=== PATIENT | female | born 1945 | race African-American/Black ===

== ENCOUNTER 2018-11-21 11:36 | Emergency (ER) | payer OTHER ==
--- NOTE | 2018-11-21 12:25 | ER Document Report ---
ED Medical Screen (RME) - General Chief Complaint: Chest Pain Stated Complaint: BACK PAIN Time Seen by Provider: 11/21/18 12:21 Notes: Patient says that she has been experiencing pains in the lower thoracic back area bilaterally for about 3 weeks. Over the past week it seems to have moved around to the front on both sides. She says it severely painful for her to take a deep breath or for her to move. It is constantly there, but worsened by movement and breathing. She has had a cough since yesterday, not producing any sputum. Has not had any fevers. Patient has a history of hypertension, but not on any current medications. Hypothyroid. Smoker. TRAVEL OUTSIDE OF THE [place] IN LAST 30 DAYS: No - Related Data Allergies/Adverse Reactions: No Known Allergies Allergy (Unverified 11/21/18 11:37) Past Medical History Renal/ Medical History: Denies: Hx Peritoneal Dialysis Physical Exam - Vital signs Vitals: Temp Pulse Resp BP Pulse Ox 97.5 F 58 L 16 144/71 H 99 11/21/18 12:11/21/18 12:11/21/18 12:11/21/18 12:11/21/18 12:01 Course - Vital Signs Vital signs: Temp Pulse Resp BP Pulse Ox 97.5 F 58 L 16 144/71 H 99 11/21/18 12:11/21/18 12:11/21/18 12:11/21/18 12:11/21/18 12:01
[2018-11-21 13:56] LABS: APPEARANCE,URINE CLEAR; BILIRUBIN,URINE NEGATIVE (NEGATIVE); COLOR,URINE YELLOW; GLUCOSE, URINE NEGATIVE (NEGATIVE); KETONES,URINE NEGATIVE (NEGATIVE); LEUKOCYTE ESTERASE,URINE MODERATE (NEGATIVE); NITRITE,URINE NEGATIVE (NEGATIVE); PROTEIN,URINE NEGATIVE (NEGATIVE); URINE SPECIFIC GRAVITY 1.018; UROBILINOGEN,URINE NEGATIVE mg/dL (<2.0)
[2018-11-21 14:10] LABS: ABSOLUTE BASOPHILS # (AUTO) 0.1 10^3/uL (0.0-0.2); ABSOLUTE EOSINOPHILS # (AUTO) 0.1 10^3/uL (0.0-0.6); ABSOLUTE MONOCYTES (AUTO) 0.5 10^3/uL (0.1-1.4); ABSOLUTE NEUT (AUTO) 3.3 10^3/uL (1.7-8.2); BASOPHILS % (AUTO) 1.1 % (0-2); EOSINOPHILS % (AUTO) 1.7 % (0-6); HEMATOCRIT 42.5 % (36.0-47.0); HEMOGLOBIN 14.3 g/dL (12.0-15.5); LYMPHOCYTES % (AUTO) 42.9 % (13-45); MEAN CORPUSCULAR HGB CONC 33.6 g/dL (32.0-36.0); MEAN CORPUSCULAR VOLUME 95 fl (80-97); MONOCYTES % (AUTO) 6.7 % (3-13); PLATELET COUNT 193 10^3/uL (150-450); RED BLOOD COUNT 4.46 10^6/uL (3.72-5.28); RED CELL DISTRIBUTION WIDTH 13.2 % (11.5-14.0); SEGMENTED NEUTROPHILS % (AUTO) 47.6 % (42-78); TOTAL CELLS COUNTED % (AUTO) 100 %; WHITE BLOOD COUNT 6.9 10^3/uL (4.0-10.5)
[2018-11-21 14:15] LABS: ALANINE AMINOTRANSFERASE 19 U/L (9-52); ALBUMIN 4.8 g/dL (3.5-5.0); ALKALINE PHOSPHATASE 79 U/L (38-126); ANION GAP 7 (5-19); ASPARTATE AMINO TRANSFERASE 25 U/L (14-36); BILIRUBIN,DIRECT 0.2 mg/dL (0.0-0.4); BILIRUBIN,TOTAL 0.5 mg/dL (0.2-1.3); BLOOD UREA NITROGEN 13 mg/dL (7-20); CARBON DIOXIDE 29 mmol/L (22-30); CHLORIDE 108 mmol/L (98-107); CREATINE KINASE 62 U/L (30-135); GLUCOSE 87 mg/dL (75-110); LIPASE 106.2 U/L (23-300); POTASSIUM 4.4 mmol/L (3.6-5.0); SODIUM 144.3 mmol/L (137-145); TOTAL PROTEIN 7.6 g/dL (6.3-8.2)
[2018-11-21 14:40] LABS: CREATINE KINASE MB 0.95 ng/mL (<4.55)
[2018-11-21 14:44] LABS: TROPONIN I < 0.012 ng/mL
--- NOTE | 2018-11-21 15:05 | RADIOLOGY REPORT (SQ) ---
EXAM DESCRIPTION: CHEST 2 VIEWS COMPLETED DATE/TIME: 11/21/2018 2:52 pm REASON FOR STUDY: Lower thoracic back and anterior chest pain bilate COMPARISON: None. EXAM PARAMETERS: NUMBER OF VIEWS: two views TECHNIQUE: Digital Frontal and Lateral radiographic views of the chest acquired. RADIATION DOSE: NA LIMITATIONS: none FINDINGS: LUNGS AND PLEURA: No opacities, masses or pneumothorax. No pleural effusion. MEDIASTINUM AND HILAR STRUCTURES: No masses or contour abnormalities. HEART AND VASCULAR STRUCTURES: Heart normal size. No evidence for failure. BONES: No acute findings. HARDWARE: None in the chest. OTHER: No other significant finding. IMPRESSION: NO ACUTE RADIOGRAPHIC FINDING IN THE CHEST. TECHNICAL DOCUMENTATION: JOB ID: [id number] [employer]- All Rights Reserved Reading location - IP/workstation name: [email or web address]
--- NOTE | 2018-11-21 19:41 | ER Document Report ---
ED General - General Chief Complaint: Chest Pain Stated Complaint: BACK PAIN Time Seen by Provider: 11/21/18 12:21 [facility] - Follow up as needed Notes: Patient is a 73-year-old female with a past medical history of hypertension, chronic smoker, presents after being referred by the [place] due to several weeks of upper back pain wrapping around to her chest. She was referred for a chest x- ray. The patient describes the pain as being a throbbing, aching pain worsened by breathing sometimes worsened by movement. She notes that she is developed a cough within the past several days but also dramatically worsens the pain in the chest. Denies a history of similar symptoms in the past. Has not had fever or constitutional symptoms. No history of DVT or pulmonary embolus. Does not take any form of supplemental estrogen. Symptoms unchanged today, came to the emerge ncy department at the behest [facility]. TRAVEL OUTSIDE OF THE [place] IN LAST 30 DAYS: No - Related Data Allergies/Adverse Reactions: No Known Allergies Allergy (Unverified 11/21/18 11:37) Past Medical History - General Information source: Patient - Social History Smoking Status: Current Every Day Smoker Cigarette use (# per day): Yes - 1/2 pack/day Smoking Education Provided: Yes - Smoking cessation counseling was provided for 4 minutes at the bedside Frequency of alcohol use: None Drug Abuse: None Lives with: Family Family History: Reviewed & Not Pertinent Patient has suicidal ideation: No Patient has homicidal ideation: No Renal/ Medical History: Denies: Hx Peritoneal Dialysis Review of Systems - Review of Systems Notes: Constitutional: Negative for fever. HENT: Negative for sore throat. Eyes: Negative for visual changes. Cardiovascular: Positive for chest discomfort Respiratory: Negative for shortness of breath. Gastrointestinal: Negative for abdominal pain, vomiting or diarrhea. Genitourinary: Negative for dysuria. Musculoskeletal: Positive for mid to upper back pain Skin: Negative for rash. Neurological: Negative for headaches, weakness or numbness. 10 point ROS negative except as marked above and in HPI. Physical Exam - Vital signs Vitals: Temp Pulse Resp BP Pulse Ox 97.5 F 58 L 16 144/71 H 99 11/21/18 12:01 11/21/18 12:11/21/18 12:11/21/18 12:11/21/18 12:01 Interpretation: Bradycardic Notes: PHYSICAL EXAMINATION: GENERAL: Well-appearing, well-nourished and in no acute distress. HEAD: Atraumatic, normocephalic. EYES: Pupils equal round and reactive to light, extraocular movements intact, sclera anicteric, conjunctiva are normal. ENT: nares patent, oropharynx clear without exudates. Moist mucous membranes. NECK: Normal range of motion, supple without lymphadenopathy LUNGS: Breath sounds clear to auscultation bilaterally and equal. No wheezes rales or rhonchi. HEART: Regular rate and rhythm without murmurs ABDOMEN: Soft, nontender, normoactive bowel sounds. No guarding, no rebound. No masses appreciated. EXTREMITIES: Normal range of motion, no pitting or edema. No cyanosis. Back: No midline spinal tenderness, step-offs or deformities NEUROLOGICAL: No focal neurological deficits. Moves all extremities sponta neously and on command. PSYCH: Normal mood, normal affect. SKIN: Warm, Dry, normal turgor, no rashes or lesions noted. Course - Re-evaluation Re-evalutation: 11/21/18 19:40 Patient presents with low thoracic, lower rib and diffuse chest wall discomfort with breathing. Patient is a smoker, although has no prior history of DVT or pulmonary metastases. No tachycardia, hypoxemia or tachypnea. However the patient's characterization of her pain is extort nearly worrisome for an acute pulmonary embolus particular given her advanced age and smoking status. Moreover I do not have an alternative vaccination for why she is describing her pain in such a manner as she has not been coughing or doing anything that would have resulted in diffuse muscular skeletal pain which although is the more probable diagnosis would be a diagnosis of exclusion. Her chest x-ray, labs, troponin all unremarkable. I do not believe troponins need to be recycled as patient has been having these pains for 3 weeks or greater. Proceed with CTA of the chest if this is normal plan for discharge home. 11/21/18 21:21 CT of the chest without any evidence of an acute pulmonary embolus. An incidental left adrenal mass is noted. I have gone to the bedside and discussed this finding with the patient and provided her a copy of her CT report. I have explicitly told her she needs to follow-up regarding this issue for possible repeat imaging, may result in serial monitoring as an outpatient versus biopsy. Patient's symptoms overall improved. Vitals remain within normal limits. At this time will discharge with return precautions and follow-up recommendations. Verbal discharge instructions given a the bedside and opportunity for questions given. Medication warnings reviewed. Patient is in agreement with this plan and has verbalized understanding of return precautions and the need for primary care follow-up in the next 24-72 hours. - Vital Signs Vital signs: Temp Pulse Resp BP Pulse Ox 98.1 F 58 L 18 137/69 H 98 11/21/18 21:58 11/21/18 12:01 11/21/18 21:58 11/21/18 21:58 11/21/18 21:18 - Laboratory Result Diagrams: 11/21/18 13:38 11/21/18 13:38 Laboratory results interpreted by me: 11/21/18 11/21/18 13:38 13:38 Chloride 108 H Ur Leukocyte Esterase MODERATE H - Diagnostic Test Radiology reviewed: Image reviewed, Reports reviewed Radiology results interpreted by me: 11/21/18 21:22 Chest x-ray: No acute infiltrate pneumothorax - EKG Interpretation by Me Additional EKG results interpreted by me: 11/22/18 02:31 Sinus bradycardia, rate 54. No ST elevations or depressions. QTC is 406. Discharge - Discharge Clinical Impression: Pleuritic pain, Upper back pain, Left adrenal mass, Chest wall pain Condition: Good Disposition: HOME, SELF-CARE Additional Instructions: You were seen today for chest pain. The exact cause of your pain is unclear. However, based on your cardiac enzyme testing, chest x-ray, CTA of your chest, and EKG it does not appear that it is from an immediately life-threatening cause at this time. Although your testing here is normal is critical that you follow- up with your primary care physician for continued evaluation of this chest pain. As we discussed the CT scan of your chest also incidentally found a mass in your left adrenal gland. You need to follow-up with your primary care doctor fo r repeat assessment of this including possible additional imaging and/or biopsy. Please return to emergency department immediately if you have worsening of your chest pain, shortness of breath, vomiting, become unable to exert yourself due to pain or difficulty breathing, you pass out, or have any pain that radiates into your arms, jaw, or back. Please also return if you have any additional symptoms that are concerning to you. [facility]errals: [facility] [[facility]] - Follow up as needed
--- NOTE | 2018-11-21 20:51 | RADIOLOGY REPORT (SQ) ---
CT CHEST ANGIOGRAPHY WITHOUT THEN WITH IV CONTRAST HISTORY: Shortness of breath. COMPARISON: None. TECHNIQUE: CT angiogram of the chest with IV contrast. 3-D MIP images were obtained in coronal and sagittal reconstructions. This exam was performed according to our departmental dose-optimization program, which includes automated exposure control, adjustment of the mA and/or kV according to patient size and/or use of iterative reconstruction technique. FINDINGS: No filling defects are identified in the pulmonary trunk, main left and right pulmonary arteries, or the segmental branches. No aortic aneurysm or dissection is seen. The thyroid gland is normal. No mediastinal or hilar adenopathy. The heart size is normal without pericardial effusion. No consolidation, pleural effusion, or pneumothorax is identified. There are mild degenerative changes of the spine. There is a 5.0 x 5.8 cm mass in the left adrenal gland containing calcification. IMPRESSION: 1. No acute pulmonary embolism. 2. Clear lungs. 3. Partially visualized 6 cm left adrenal gland mass. Consider dedicated abdomen CT scan for complete evaluation.
--- NOTE | 2018-11-21 21:57 | EKG REPORT ---
SEVERITY:- NORMAL ECG - SINUS RHYTHM : Confirmed by: Aditya Cody 21-Nov-2018 21:56:30
[2018-11-21 22:06] VITALS: BP 137/69
== END 2018-11-21 22:06 | disposition home or self-care (01) ==
LOC: ER 11:36
DX: D44.12 Neoplasm of uncertain behavior of left adrenal gland (principal); R07.81 Pleurodynia; M54.6 Pain in thoracic spine; R05 Cough; M54.9 Dorsalgia, unspecified; I10 Essential (primary) hypertension; F17.210 Nicotine dependence, cigarettes, uncomplicated
CPT/HCPCS: 36415; 71046; 71275; 80053; 81001; 82550; 82553; 83690; 84484; 85025; 93005; 93010; 99284

== ENCOUNTER 2019-03-20 07:49 | Inpatient (IN) | payer OTHER, MEDICARE ==
--- NOTE | 2019-03-13 10:29 | RADIOLOGY REPORT (SQ) ---
EXAM DESCRIPTION: CHEST PA/LATERAL COMPLETED DATE/TIME: 03/13/2019 10:20 am REASON FOR STUDY: PRE OP COMPARISON: 11/21/2018 EXAM PARAMETERS: NUMBER OF VIEWS: two views TECHNIQUE: Digital Frontal and Lateral radiographic views of the chest acquired. RADIATION DOSE: NA LIMITATIONS: none FINDINGS: LUNGS AND PLEURA: No opacities, masses or pneumothorax. No pleural effusion. MEDIASTINUM AND HILAR STRUCTURES: No masses or contour abnormalities. HEART AND VASCULAR STRUCTURES: Heart normal size. No evidence for failure. BONES: No acute findings. HARDWARE: None in the chest. OTHER: No other significant finding. IMPRESSION: NO SIGNIFICANT RADIOGRAPHIC FINDING IN THE CHEST. TECHNICAL DOCUMENTATION: JOB ID: [id number] [employer]- All Rights Reserved Reading location - IP/workstation name: [email or web address]
[2019-03-13 10:45] LABS: HEMATOCRIT 40.6 % (36.0-47.0); HEMOGLOBIN 13.4 g/dL (12.0-15.5); MEAN CORPUSCULAR HEMOGLOBIN 31.1 pg (27.0-33.4); MEAN CORPUSCULAR HGB CONC 32.9 g/dL (32.0-36.0); MEAN CORPUSCULAR VOLUME 95 fl (80-97); PLATELET COUNT 221 10^3/uL (150-450); WHITE BLOOD COUNT 5.8 10^3/uL (4.0-10.5)
[2019-03-13 11:12] LABS: ANION GAP 7 (5-19); BLOOD UREA NITROGEN 13 mg/dL (7-20); CALCIUM 10.4 mg/dL (8.4-10.2); CARBON DIOXIDE 26 mmol/L (22-30); CHLORIDE 109 mmol/L (98-107); GLUCOSE 86 mg/dL (75-110); POTASSIUM 5.5 mmol/L (3.6-5.0)
--- NOTE | 2019-03-13 19:15 | EKG REPORT ---
SEVERITY:- OTHERWISE NORMAL ECG - SINUS RHYTHM ATRIAL PREMATURE COMPLEX : Confirmed by: Rimma Wooten MD 13-Mar-2019 19:15:15
[~2019-03-20 07:49] MED LIST: ACETAMINOPHEN 325 MG TABLET ONE; ACETAMINOPHEN 325 MG TABLET PO PRN; CEFAZOLIN 2 GM/D5W RTU 2 GM/50 ML RTUPB IV ONE; DEXAMETHASONE SOD PHOSPHATE INJ 4 MG/1 ML VIAL ONE; FENTANYL CITRATE INJ/PF 100 MCG/2 ML AMPUL ONE; FENTANYL CITRATE INJ/PF 250 MCG/5 ML AMPULE ONE; HYDROCORTISONE SOD SUCCINATE INJ/PF 100 MG/2 ML SDV ONE; IBUPROFEN 800 MG in NORMAL SALINE 250 ML IV PRN; LACTATED RINGERS 1000 ML IV PRN; LIDOCAINE 0.5% INJ-PF (5 MG/ML) 50 ML SDV SUBCUT PRN; MIDAZOLAM 2 MG/2 ML INJ ONE; ONDANSETRON HCL INJ/PF 4 MG/2 ML SDV ONE; PREGABALIN 50 MG CAPSULE ONE; PREGABALIN 50 MG CAPSULE PO PRN; PROPOFOL INJ 200 MG/20 ML VIAL IV ONE; RINGERS SOLUTION,LACTATED 1,000 ML IV PRN; SUGAMMADEX SODIUM 200 MG/2 ML SDV IV ONE
[2019-03-20] MEDS ORDERED: ALBUTEROL SULFATE 0.083% NEB 2.5 MG/3 ML AMPUL NEB ONE (08:47)
[2019-03-20] MEDS ORDERED: MIDAZOLAM 2 MG/2 ML INJ ONE (08:48)
[2019-03-20] MEDS ORDERED: BUPIVACAINE HCL 0.25 % INJ/PF (2.5 MG/1 ML) 30 ML VIAL ONE (09:37)
[2019-03-20] MEDS ORDERED: ONDANSETRON HCL INJ/PF 4 MG/2 ML SDV IV PRN ×2 (12:28→13:07)
[2019-03-20] MEDS ORDERED: DOCUSATE SODIUM 100 MG CAPSULE PO PRN (12:36)
[2019-03-20] MEDS ORDERED: HYDRALAZINE HCL INJ/PF 20 MG/1 ML SDV IV PRN (12:37)
[2019-03-20] MEDS ORDERED: MEPERIDINE HCL/PF INJ 25 MG/1 ML DISP.SYRIN IV PRN (13:07)
[2019-03-20] MEDS ORDERED: MORPHINE SULFATE 10 MG/ML INJ IV PRN (13:07)
[2019-03-20] MEDS ORDERED: FENTANYL CITRATE INJ/PF 100 MCG/2 ML AMPUL IV PRN ×3 (13:07)
[2019-03-20] MEDS ORDERED: DIPHENHYDRAMINE HCL 50 MG/ML VIAL IV PRN (13:07)
[2019-03-20] MEDS ORDERED: PROMETHAZINE HCL INJ 25 MG/1 ML VIAL IV PRN ×2 (13:07)
[2019-03-20] MEDS: FENTANYL CITRATE INJ/PF 100 MCG/2 ML AMPUL ONE ×2 (13:10→13:20)
[2019-03-20] MEDS: HYDROMORPHONE HCL INJ/PF 2 MG/ML AMPULE ONE ×3 (13:33→14:08)
[2019-03-20] MEDS ORDERED: SUCCINYLCHOLINE CHLORIDE INJ 200 MG/10 ML VIAL ONE (14:17)
[2019-03-20] MEDS: KETOROLAC TROMETHAMINE INJ/PF 30 MG/1 ML SDV IV SCH ×2 (16:07→21:05)
[2019-03-20] MEDS: MORPHINE SULFATE 10 MG/ML INJ IV PRN (19:42)
[2019-03-20] MEDS: FAMOTIDINE 20 MG TABLET PO SCH (21:06)
[2019-03-20] MEDS: DEXTROSE 5%-LACTATED RINGERS 1,000 ML IV PRN (22:05)
[2019-03-21] MEDS: MORPHINE SULFATE 10 MG/ML INJ IV PRN ×5 (00:07→21:41)
[2019-03-21] MEDS: DEXTROSE 5%-LACTATED RINGERS 1,000 ML IV PRN (03:20)
[2019-03-21 03:53] LABS: ABSOLUTE EOSINOPHILS # (AUTO) 0.1 10^3/uL (0.0-0.6); ABSOLUTE LYMPHOCYTES (AUTO) 1.5 10^3/uL (0.5-4.7); ABSOLUTE MONOCYTES (AUTO) 0.9 10^3/uL (0.1-1.4); ABSOLUTE NEUT (AUTO) 10.4 10^3/uL (1.7-8.2); BASOPHILS % (AUTO) 0.3 % (0-2); EOSINOPHILS % (AUTO) 0.4 % (0-6); HEMOGLOBIN 11.6 g/dL (12.0-15.5); LYMPHOCYTES % (AUTO) 11.5 % (13-45); MEAN CORPUSCULAR HEMOGLOBIN 31.5 pg (27.0-33.4); MEAN CORPUSCULAR HGB CONC 33.1 g/dL (32.0-36.0); MEAN CORPUSCULAR VOLUME 95 fl (80-97); MONOCYTES % (AUTO) 6.9 % (3-13); PLATELET COUNT 169 10^3/uL (150-450); RED BLOOD COUNT 3.68 10^6/uL (3.72-5.28); SEGMENTED NEUTROPHILS % (AUTO) 80.9 % (42-78); TOTAL CELLS COUNTED % (AUTO) 100 %; WHITE BLOOD COUNT 12.9 10^3/uL (4.0-10.5)
[2019-03-21 04:09] LABS: BLOOD UREA NITROGEN 11 mg/dL (7-20); CALCIUM 9.1 mg/dL (8.4-10.2); CARBON DIOXIDE 27 mmol/L (22-30); CHLORIDE 109 mmol/L (98-107); GLUCOSE 131 mg/dL (75-110); POTASSIUM 4.1 mmol/L (3.6-5.0)
[2019-03-21 04:15] LABS: ANION GAP 5 (5-19); SODIUM 141.3 mmol/L (137-145)
[2019-03-21] MEDS: KETOROLAC TROMETHAMINE INJ/PF 30 MG/1 ML SDV IV SCH ×3 (05:42→21:31)
--- NOTE | 2019-03-21 08:34 | PDOC PROGRESS REPORT ---
Subjective Progress Note for:: 03/21/19 Reason For Visit: S/P ADRENALECTOMY Physical Exam Vital Signs: Temp Pulse Resp BP Pulse Ox 98.0 F 59 L 24 H 126/58 H 98 03/21/19 05:59 03/21/19 05:59 03/21/19 06:24 03/21/19 06:24 03/21/19 06:24 Intake & Output 03/20/19 03/21/19 03/22/19 06:59 06:59 06:59 Intake Total 2444 Output Total 1505 50 Balance 939 -50 Weight 66.3 kg Results Laboratory Results: 03/21/19 03:35 03/21/19 03:35 03/20/19 03/20/19 03/21/19 08:10 08:10 03:35 WBC 12.9 H RBC 3.68 L Hgb 11.6 L Hct 35.0 L MCV 95 MCH 31.5 MCHC 33.1 RDW 13.0 Plt Count 169 Seg Neutrophils % 80.9 H Lymphocytes % 11.5 L Monocytes % 6.9 Eosinophils % 0.4 Basophils % 0.3 Absolute Neutrophils 10.4 H Absolute Lymphocytes 1.5 Absolute Monocytes 0.9 Absolute Eosinophils 0.1 Absolute Basophils 0.0 Sodium Potassium 3.8 Chloride Carbon Dioxide Anion Gap BUN Creatinine Est GFR ( Amer) Est GFR (Non-Af Amer) Glucose Calcium Blood Type O POSITIVE Antibody Screen NEGATIVE 03/21/19 03:35 WBC RBC Hgb Hct MCV MCH MCHC RDW Plt Count Seg Neutrophils % Lymphocytes % Monocytes % Eosinophils % Basophils % Absolute Neutrophils Absolute Lymphocytes Absolute Monocytes Absolute Eosinophils Absolute Basophils Sodium 141.3 Potassium 4.1 Chloride 109 H Carbon Dioxide 27 Anion Gap 5 BUN 11 Creatinine 0.75 Est GFR ( Amer) > 60 Est GFR (Non-Af Amer) > 60 Glucose 131 H Calcium 9.1 Blood Type Antibody Screen Impressions: Chest X-Ray 03/13/19 00:00 IMPRESSION: NO SIGNIFICANT RADIOGRAPHIC FINDING IN THE CHEST. Assessment & Plan - Diagnosis (1) Adrenal mass, left Is this a current diagnosis for this admission?: Yes - Plan Summary Plan Summary: This is a 74-year-old female status post robot-assisted laparoscopic left adrenalectomy for a 6 cm adrenal mass. The patient is doing well today. She complains of abdominal discomfort at her incision sites. She has not been out of bed yet. She denies nausea or vomiting. Her blood pressure has been stable overnight. Transfer to the floor. Discontinue [place]. Advance diet. Out of bed/ambulate in hallways. If the patient continues to progress well, she may be fit for discharge tomorrow.
[2019-03-21] MEDS: FAMOTIDINE 20 MG TABLET PO SCH ×2 (09:27→21:31)
[2019-03-21] MEDS ORDERED: ENOXAPARIN SODIUM INJ 40 MG/0.4 ML DISP.SYRIN SUBCUT SCH (10:00)
[2019-03-21] MEDS: HYDROCODONE/ACETAMINOPHEN 10-325 MG TABLET PO PRN (15:30)
[2019-03-22] MEDS: KETOROLAC TROMETHAMINE INJ/PF 30 MG/1 ML SDV IV SCH (05:34)
[2019-03-22 05:41] VITALS: BP 135/76
[2019-03-22] MEDS ORDERED: LEVOTHYROXINE SODIUM 0.1 MG TABLET PO SCH (06:00)
--- NOTE | 2019-03-22 08:44 | PDOC PROGRESS REPORT ---
Subjective Progress Note for:: 03/22/19 Subjective:: pt afeb vss feels well roya reg diet Reason For Visit: LEFT ADRENAL MASS Physical Exam Vital Signs: Temp Pulse Resp BP Pulse Ox 98.3 F 58 L 14 135/76 H 99 03/22/19 05:40 03/22/19 05:40 03/22/19 05:40 03/22/19 05:40 03/21/19 12:00 Intake & Output 03/21/19 03/22/19 03/23/19 06:59 06:59 06:59 Intake Total 2444 1164 Output Total 1505 1025 Balance 939 139 Weight 66.3 kg 66 kg General appearance: PRESENT: no acute distress Head exam: PRESENT: normocephalic Eye exam: PRESENT: EOMI Ear exam: PRESENT: normal external ear exam Mouth exam: PRESENT: moist Neck exam: PRESENT: full ROM Respiratory exam: PRESENT: clear to auscultation levar Cardiovascular exam: PRESENT: RRR Pulses: PRESENT: normal radial pulses, normal femoral pulses Vascular exam: PRESENT: normal capillary refill GI/Abdominal exam: PRESENT: soft Rectal exam: PRESENT: deferred Extremities exam: PRESENT: full ROM Musculoskeletal exam: PRESENT: full ROM Neurological exam: PRESENT: alert, awake, oriented to person, oriented to place Skin exam: PRESENT: dry Results Laboratory Results: 03/21/19 03:35 03/21/19 03:35 Impressions: Chest X-Ray 03/13/19 00:00 IMPRESSION: NO SIGNIFICANT RADIOGRAPHIC FINDING IN THE CHEST. Assessment & Plan - Plan Summary Plan Summary: s/p robotic assisted left adrenalectomy doing well roya reg diet ready for dc home
--- NOTE | 2019-03-22 08:47 | Discharge Summary ---
Discharge Summary (SDC) - Discharge Final Diagnosis: left adrenal mass Date of Surgery: 03/20/19 Condition: Good Treatment or Instructions: reg diet no lifting more than 10lbs for 6wks ok to shower ok to drive next /saturday f/u with [facility] in 7-10 days. Referrals: ABDULLAHI GILMAN PA [Primary Care Provider] - Discharge Diet: As Tolerated Discharge Activity: No Lifting Over 10 Pounds Report the Following to Your Physician Immediately: Shortness of Breath, Nausea, Vomiting, Increase in Pain, Yellow Skin, Fever over 101 Degrees
--- NOTE | 2019-03-22 09:09 | DISCHARGE SUMMARY E ---
Discharge Summary NAME: JAMIA OLIVEIRA : 1945 AGE: 74Y ADMITTED: 03/20/2019 DISCHARGED: 03/22/2019 DISCHARGE DIAGNOSIS: LEFT ADRENAL MASS. REASON FOR HOSPITALIZATION/HOSPITAL COURSE: This is a 74-year-old female who underwent left adrenalectomy on 03/20/2019. She tolerated the procedure well and was monitored in the ICU postoperatively. She had an uncomplicated postoperative course. The following day, postop day #1, she was ready for discharge to the regular floor; however, she remained in the intensive care unit secondary to staffing. During the evening, she was afebrile with stable vital signs. She was able to ambulate and get out of bed. She was tolerating a regular diet. On 03/22/2019, she felt well and she wanted to be discharged home. She was tolerating a regular diet. She will now be discharged home. No medications are necessary. She will be given a follow-up appointment in 7-[address] Hernandez. She is encouraged to increase her mobilization. It is okay for her to shower. Avoid lifting anything more than 10 pounds for the next 4 weeks. She is able to drive approximately 3-4 days after discharge. FINAL DIAGNOSIS: LEFT ADRENAL MASS. DICTATING PHYSICIAN: DEANN MARTINEZ M.D. [id number] [facility]#: [id number] ID: [id number] JOB#: [id number] ACCT: [id number] cc:Katlyn YAP M.D. >
[2019-03-22] MEDS: HYDROCODONE/ACETAMINOPHEN 10-325 MG TABLET PO PRN (09:17)
[2019-03-23] MEDS ORDERED: LEVOTHYROXINE SODIUM 0.088 MG TABLET PO SCH (06:00)
--- NOTE | 2019-03-23 08:16 | Operative Report ---
Nonrecallable Operative Report DATE OF SURGERY: 03/20/19 PREOPERATIVE DIAGNOSIS: Approximately 6 cm left adrenal mass POSTOPERATIVE DIAGNOSIS: Same OPERATION: Robot-assisted laparoscopic left adrenalectomy. SURGEON: SEBASTIÁN POWER ANESTHESIA: GA TISSUE REMOVED OR ALTERED: Left adrenal gland COMPLICATIONS: None apparent ESTIMATED BLOOD LOSS: Minimal PROCEDURE: Drains/implants: None. Procedure in detail: After informed consent was obtained, the patient was brought to the operating room and laid in the right lateral decubitus position. The area of the abdomen and flank were prepped and draped in a normal sterile fashion. An incision was created 2 to 3 cm superior and to the left of the umbilicus. Dissection was carried through the subcutaneous tissue using sharp and blunt means. The abdomen was entered sharply. The balloon trocar was inserted, and pneumoperitoneum was achieved. 8 mm robotic trochars were placed in the subxiphoid position, anterior axillary line, and left flank. The robot was then brought over the patient and docked appropriately. Dissection was begun at the splenic flexure of the colon. The proximalmost portion of the descending colon was mobilized medially by dividing the white line of Toldt. Dissection was carried cranially, to free the spleen from its lateral attachments. Once this was performed, the pancreas and spleen were mobilized medially along with the left colon. The left kidney and left adrenal gland were brought into view. The left adrenal vein was then identified. It was clipped doubly at the proximal portion. It was clipped distally x1. It was divided using robotic scissors. Next, the robotic vessel sealing device was used to remove the adrenal gland. This was done from an inferior to superior fashion. Great care was taken not to injure the kidney or the renal vascular pedicle. Once the adrenal gland and mass were freed, they were placed into an Endo Catch bag. The 12 mm balloon trocar was removed, and the incision was slightly lengthened. This was done in order to remove the specimen without morselization. The specimen was then removed. The extraction site was closed using #1 single strand PDS suture in simple running fashion. Once this was completed, the 8 mm trochars were removed. The overlying skin was closed using 4-0 Vicryl Rapide suture in subcuticular fashion. Dressings were placed, and the procedure was concluded. All sponge, instrument, and needle counts were correct x2. Condition: Stable.
== END 2019-03-22 10:55 | disposition home or self-care (01) | DRG 615 ==
LOC: INOR 07:49 → INTOOBSV 07:49 → OBSVTOIN 12:28 → ICU 15:08
PROVIDERS: ADMIT Surgery; ATTEND Surgery
PROC: 8E0W8CZ Robotic Assisted Procedure of Trunk Region, Via Natural or Artificial Opening Endoscopic (ICD-10-PCS; 2019-03-20)
PROC: 0GT24ZZ Resection of Left Adrenal Gland, Percutaneous Endoscopic Approach (ICD-10-PCS; principal; 2019-03-20 10:00)
DX: E27.9 Disorder of adrenal gland, unspecified (principal)
CPT/HCPCS: 36415; 71046; 80048; 84132; 85025; 85027; 866; 86850; 86900; 86901; 88307; 93005; 93010; J0330; J0690; J1100; J1170; J1720; J1741; J1885; J2250; J2270; J2405; J2704; J3010; J3490; J7050; J7121